=== PATIENT | male | born 1980 ===

== ENCOUNTER 2024-04-19 09:45 | Day surgery (SDC) | payer OTHER, SELFPAY ==
--- NOTE | 2024-04-19 | PATH_ITS ---
[facility] Accession Number: [id number] No. of containers..01 Tissue . 01 Material submitted: . rectum - RECTAL POLYP . 01 Diagnosis: A. RECTUM, POLYPECTOMY: [facility]-rectal mucosa with benign lymphoid aggregate, negative for active, chronic, or microscopic colitis. Negative for dysplasia or malignancy. Additional deeper levels were examined. [facility] 04/22/2024 1248 Local . 01 Electronically signed: . Km Mills MD, Pathologist NPI- [id number] . 01 Gross description: . RECTAL POLYP: Received in formalin are 2 fragment(s) of ann, soft tissue measuring 0.2 x 0.2 x 0.2 cm to 0.8 x 0.3 x 0.2 cm submitted entirely in 1 cassette(s) /CHARLENE 04/20/2024 2344 Local . 01 Pathologist provided ICD-10: Z12.11 . 01 CPT . 198391 Specimen Comment: A courtesy copy of this report has been sent to [phone] Performed at: [address] [facility] [address], [place], [place] [id number] MD Zack Urias MD Phone: [phone]
[2024-04-19 10:09] VITALS: BP 143/78; PULSE 70; RESP 18; TEMP 36.6
[2024-04-19 10:26] VITALS: BP 143/78; PULSE 70; RESP 16; TEMP 36.6; O2SAT 100
--- NOTE | 2024-04-19 10:57 | PM.HP.1 ---
History of Present Illness History of Present Illness Chief complaint: Screening Colonoscopy Narrative: First screening colonoscopy with a family history of colon polyps in his father at a young age. [facility] Social History Smoking Status: Current every day smoker alcohol intake: current Meds Home Medications and Allergies Home Medications Medication Instructions Recorded Confirmed Type No Known Home Medications 04/19/24 04/19/24 History Allergies Allergy/AdvReac Type Severity Reaction Status Date / Time No Known Drug Allergies Allergy Verified 04/19/24 10:03 Exam Vital Signs (past 8 hours): - 04/19/24 10:09 04/19/24 10:26 Temperature 97.8 F 98 F Pulse Rate 70 70 Respiratory Rate 18 16 Blood Pressure 143/78 H 143/78 H Pulse Oximetry 100 Oxygen Delivery Method Room Air Room Air Oxygen Delivery Method Room Air Narrative Exam Narrative: Oropharynx free of lesions Chest clear to auscultation percussion Cardiac exam reveals no S3 or murmur Assessment & Plan Assessment & Plan narrative: For screening colonoscopy with family history of colon polyps in a first-degree relative. Risks, benefits, alternatives have been explained. Time-Based Coding :: [TOTAL MINUTES] spent with patient and on the chart (including review of chart, obtaining history, exam, reviewing outside data, placing orders, documenting exam and treatment plan, and counseling patient) on [DATE].
--- NOTE | 2024-04-19 10:58 | PM.OP.COLON ---
Operative Date/Time/Diagnoses Date of procedure: 04/19/24 Pre-op diagnosis: See indication and findings Procedure & Clinicians Study performed: Colonoscopy Indications: For screening colonoscopy with family history of colon polyps in his father at a young age Surgeon: Mireya Reyna Procedure Notes Procedure in detail: After informed consent was obtained the patient was placed in left lateral decubitus position. The video colonoscope was introduced the rectum slowly advanced cecum. Preparation was good. On slow withdrawal mucosa was carefully examined. The scope was removed. The patient tolerated procedure well. Blood loss none Complications none Sedation mac Findings 1. 5 mm polyp in rectum Jumbo biopsy x2 and removed 2. Otherwise negative colonoscopy to cecum Because of his father's history of adenomatous polyps and his personal history I would suggest follow-up at 7 years unless pathology directs us differently
[2024-04-19 11:18] VITALS: BP 95/65; PULSE 67; RESP 12; TEMP 36.7; O2SAT 96
[2024-04-19 11:27] VITALS: BP 100/66; PULSE 78; RESP 12; O2SAT 97
[2024-04-19 11:30] VITALS: BP 110/79; PULSE 75; RESP 12; TEMP 36.7; O2SAT 97
[2024-04-19 11:33] VITALS: BP 114/80; PULSE 69; RESP 12; TEMP 36.7; O2SAT 95
== END 2024-04-19 11:45 | disposition home or self-care (01) ==
PROVIDERS: PCP Family Medicine; Referring Provider Internal Medicine Gastroenterology; Visit Provider Internal Medicine Gastroenterology
PROC: 0DJD8ZZ Inspection of Lower Intestinal Tract, Via Natural or Artificial Opening Endoscopic (ICD-10-PCS; CPT 45378; principal; 2024-04-19 11:00)
DX: Z12.11 Encounter for screening for malignant neoplasm of colon (principal); Z83.719 Family history of colon polyps, unspecified
CPT/HCPCS: 45380; J2704